=== PATIENT | male | born 1955 | race Caucasian/White ===

== ENCOUNTER 2020-01-08 21:39 | Outpatient (REF) | payer BC, SELFPAY ==
[2020-01-08 22:14] LABS: HCT 44.3 % (40.0-50.0); HGB 14.7 g/dL (13.5-17.5); MCH 29.3 pg (27.0-33.0); MCHC 33.2 % (32.0-36.0); MCV 88.2 fL (80-95); MPV 12.4 fL (8.0-11.0); Platelet Count 195 10^3/uL (130-400); RBC 5.02 10^6/uL (4.36-5.78); RDW 13.6 % (11.8-14.1); RDW-SD 43.8 fL
[2020-01-08 22:55] LABS: ALT 67 U/L (16-63); AST 38 U/L (15-37); Albumin 3.8 g/dL (3.4-5.0); Alkaline Phosphatase 77 U/L (46-116); Anion Gap 9.1 mmol/L (3-11); BUN 24 mg/dL (7-18); Bilirubin, Total 0.5 mg/dL (0.2-1.0); CO2 23.9 mmol/L (21.0-32.0); CREATININE 0.94 mg/dL (0.70-1.30); Chloride 107 mmol/L (98-107); Glucose 99 mg/dL (74-106); Potassium 4.2 mmol/L (3.5-5.1); Sodium 140 mmol/L (136-145)
== END 2020-01-08 21:59 ==
LOC: NCHCN 21:39
PROVIDERS: PCP Nurse Practitioner Family; Visit Provider Nurse Practitioner Family
DX: Z00.00 Encounter for general adult medical examination without abnormal findings (principal)
CPT/HCPCS: 80053; 85027; 85025

== ENCOUNTER → 2020-02-12 17:14 | Outpatient (REF) | payer BC, SELFPAY ==
[2020-02-12 21:36] LABS: ALT 52 U/L (16-63); AST 25 U/L (15-37); Albumin 3.6 g/dL (3.4-5.0); Alkaline Phosphatase 75 U/L (46-116); Anion Gap 9.3 mmol/L (3-11); BUN 20 mg/dL (7-18); Bilirubin, Total 0.4 mg/dL (0.2-1.0); CO2 24.7 mmol/L (21.0-32.0); CREATININE 0.86 mg/dL (0.70-1.30); Calcium 8.8 mg/dL (8.5-10.1); Calculated LDL 95 mg/dL (<100); Chloride 106 mmol/L (98-107); Cholesterol 167 mg/dL (<200); Glucose 141 mg/dL (74-106); HDL Cholesterol 55 mg/dL (40-60); Potassium 4.1 mmol/L (3.5-5.1); Sodium 140 mmol/L (136-145); Total Protein 6.9 g/dL (6.4-8.2); Triglyceride 87 mg/dL (<150)
[2020-02-13 17:18] LABS: PSA, Screening 0.3 ng/mL (0.0-4.5)
== END ==
LOC: NCHCN 17:14
PROVIDERS: PCP Nurse Practitioner Family; Visit Provider Nurse Practitioner Family
DX: R39.15 Urgency of urination (principal); N40.0 Benign prostatic hyperplasia without lower urinary tract symptoms; Z00.00 Encounter for general adult medical examination without abnormal findings
CPT/HCPCS: 80053; 80061; 84153

== ENCOUNTER 2022-08-30 02:46 | Outpatient (CLI) | payer BC, SELFPAY ==
--- NOTE | 2022-08-30 14:01 | DI.RAD_ITS ---
Exam(s) XR FOOT LT COMPLETE EXAM: XR FOOT LT COMPLETE CLINICAL HISTORY: ? ostemyelitis to 2nd digit,TOE PAIN, DIABETES,M79.676,E11.621,l97.509. TECHNIQUE: 2D digital imaging was performed of the left foot. Three images were obtained. AP, obli que and lateral views were obtained. COMPARISON: No exams were available for comparison FINDINGS: BONES: No acute fracture is present. No bony destructive lesion is seen. Degenerative changes of the 1st MTP joint. JOINTS: No dislocation present. SOFT TISSUE: Soft tissue swelling of the foot. IMPRESSION: No radiographic evidence to suggest acute osteomyelitis. DATA REPOSITORY: RADIATION DOSE DELIVERED:
--- NOTE | 2022-08-30 14:01 | DI.RAD_ITS ---
Exam(s) XR FOOT RT COMPLETE EXAM: XR FOOT RT COMPLETE CLINICAL HISTORY: ? ostemyelitis to 2nd digit. TECHNIQUE: 2D digital imaging was performed of the right foot. Three images were obtained. AP, obl ique and lateral views were obtained. COMPARISON: No exams were available for comparison FINDINGS: BONES: No acute fracture is present. No bony destructive lesion is seen. Postsurgical changes are see n at the great toe. There is a small plantar calcaneal spur. JOINTS: No dislocation present. There are degenerative changes present. SOFT TISSUE: Soft tissue swelling of the foot. IMPRESSION: No radiographic evidence to suggest osteomyelitis. DATA REPOSITORY: RADIATION DOSE DELIVERED:
== END 2022-08-30 03:06 ==
LOC: DI 02:47
PROVIDERS: Visit Provider Podiatrist
DX: E11.621 Type 2 diabetes mellitus with foot ulcer (principal); M19.072 Primary osteoarthritis, left ankle and foot; M86.171 Other acute osteomyelitis, right ankle and foot
CPT/HCPCS: 73630

== ENCOUNTER 2022-09-23 13:56 | Outpatient (REF) | payer MEDICARE, BC, SELFPAY | END 2022-09-23 13:57 | disposition home or self-care (01) | LOC: LBN 13:56 | PROVIDERS: Visit Provider Podiatrist | DX: L97.521 Non-pressure chronic ulcer of other part of left foot limited to breakdown of skin (principal); L97.511 Non-pressure chronic ulcer of other part of right foot limited to breakdown of skin | CPT/HCPCS: 87077; 87070; 87075; 87186; 87205 ==

== ENCOUNTER → 2022-09-23 15:17 | Outpatient (CLI) | payer MEDICARE, BC, SELFPAY ==
--- NOTE | 2022-09-23 14:15 | DI.RAD_ITS ---
Exam(s) XR FOOT RT COMPLETE EXAM: XR FOOT RT COMPLETE CLINICAL HISTORY: r/o osteomyelitis, toe ulcer, L97.509. TECHNIQUE: 2D digital imaging was performed. Three views. COMPARISON: CR XR FOOT RT COMPLETE from 08/30/2022 FINDINGS: BONES: No acute fracture is present. No bony destructive lesion is seen. Stable appearance of bunion ectomy defect at the medial 1st metatarsal head. Stable mild hallux valgus. Small heel spur. JOINTS: No dislocation present. Hammertoe deformity 2nd toe. SOFT TISSUE: A BB marker was placed over the air ulcer on the dorsal aspect of the 2nd toe. There is soft tissue swelling of the 2nd toe. No foreign body or gas collection is seen. No bony erosions. IMPRESSION: Soft tissue swelling of the 2nd toe. No bony erosion. DATA REPOSITORY: RADIATION DOSE DELIVERED:
--- NOTE | 2022-09-23 14:15 | DI.RAD_ITS ---
Exam(s) XR FOOT LT COMPLETE EXAM: XR FOOT LT COMPLETE CLINICAL HISTORY: r/o osteomyelitis, toe ulcer, L97.509. TECHNIQUE: 2D digital imaging was performed. Three views. COMPARISON: CR XR FOOT LT COMPLETE from 08/30/2022 FINDINGS: BONES: No acute fracture is present. No bony destructive lesion is seen. Tiny plantar calcaneal spu r. JOINTS: No dislocation present. No significant degenerative changes. SOFT TISSUE: A BB marker was placed at the distal aspect of the 2nd toe to karlene the ulcer. There is soft tissue swelling around this area. No gas collection or foreign body. No bony erosion. IMPRESSION: Soft tissue swelling of the 2nd toe. No evidence of bony erosion DATA REPOSITORY: RADIATION DOSE DELIVERED:
--- OUTSIDE RECORDS SUMMARY | 2022-09-23 15:19 | XMS_ITS | CCD ---
Author Name Unknown Address [address] [place] [address] [id number] Organization Unknown Address [address] [place] [address] [id number] Care Team Providers Care Industrial Cafeteria Manager Name Role Phone MARIA OLIVO Attending Physician [phone] MARIA OLIVO Rounding (Secondary) Physician [phone] Vital Signs Unknown or Not Available. Allergies Unknown or Not Available. Procedures Unknown or Not Available. History of Immunizations Unknown or Not Available. Problems Unknown or Not Available. Results Unknown or Not Available. Active Medications Unknown or Not Available. Medications Administered During Visit Unknown or Not Available. Encounters Encounter Diagnosis Diagnosis Code Start Date Impingement syndrome of right shoulder [id number] 12/17/2020 Social History Smoking Status Code Start Date End Date Never smoker [id number] Patient Decision Aids Unknown or Not Available. Discharge Instructions You were admitted to [facility] on 12/17/2020 11:24 with a principal diagnosis of Impingement syndrome of right shoulder You were discharged from [facility] on 12/17/2020 00:00 Should you have any questions prior to discharge, please contact a member of your healthcare team. If you have left the hospital and have any questions, please contact your primary care physician. Chief Complaint and Reason For Visit Unknown or Not Available. Function Status Unknown or Not Available. Plan of Care Unknown or Not Available. Referral/Transition of Care Unknown or Not Available.
--- OUTSIDE RECORDS SUMMARY | 2022-09-23 15:19 | XMS_ITS | Continuity of Care Document ---
Author Name Unknown Organization [facility] Ambulatory Clinics Address [address] [place] [address] Care Team Providers Care Size Marker Name Role Phone FÁTIMA CUEVA Primary Care Physician Encounter [facility] NBR [id number] Date(s): 02/17/22 - 02/17/22 [facility] Ambulatory Clinics [address], [place] [address] Encounter Diagnosis Obstructive sleep apnea syndrome(Discharge Diagnosis) - 02/17/22 REM sleep behavior disorder(Discharge Diagnosis) - 02/17/22 Discharge Disposition: Home or Self Care Attending Physician: Radhames Mena DO Allergies, Adverse Reactions, Alerts Substance Reaction Severity Status metoprolol Unknown Active Latex Unknown Active Assessment and Plan Future Appointments Functional Status 02/17/22 Living Environment Home Environment No qualifying data available Other exposure to Infectious Disease Non e Medications azelastine 137 mcg/inh (0.1%) nasal spray 30 mL, 0 Refill(s) Start Date: 02/16/22 Status: Ordered Blood Glucose Lancets Supply, See instructions, # 1 EA, 0 Refill(s) Start Date: 11/24/21 Status: Ordered celecoxib 100 mg oral capsule 180 cap, 0 Refill(s) Start Date: 02/16/22 Status: Ordered famotidine 20 mg oral tablet 20 mg = 1 tab, Oral, BID, # 60 tab, 0 Refill(s) Start Date: 11/24/21 Status: Ordered finasteride 5 mg oral tablet 5 mg = 1 tab, Oral, Daily, # 30 tab, 0 Refill(s) Start Date: 11/24/21 Status: Ordered fluticasone 50 mcg inhalation powder 1 puffs, Inhale, BID, # 120 EA, 0 Refill(s) Start Date: 11/24/21 Status: Ordered fluticasone 50 mcg/inh nasal spray 50 mcg, Subacromial, Daily, 1 Unknown, 0 Refill(s) Start Date: 02/16/22 Status: Ordered gabapentin 300 mg oral capsule 300 mg = 1 cap, Oral, BID, morning and at dinner time, # 90 cap, 0 Refill(s) Start Date: 01/18/22 Status: Ordered gabapentin 600 mg oral tablet 600 mg = 1 tab, Oral, Daily, at bedtime, # 90 tab, 0 Refill(s) Start Date: 11/24/21 Status: Ordered guaiFENesin 400 mg oral tablet 400 mg = 1 tab, Oral, every 4 hr, PRN as needed for congestion, # 30 tab, 0 Refill(s) Start Date: 11/24/21 Status: Ordered ketoconazole 2% topical cream 1 ted, Topical, BID, # 60 g, 0 Refill(s) Start Date: 11/24/21 Stop Date: 12/22/21 Status: Ordered metFORMIN 500 mg oral tablet 500 mg = 1 tab, Oral, Daily, # 60 tab, 0 Refill(s) Start Date: 11/24/21 Status: Ordered methocarbamol 750 mg oral tablet 750 mg = 1 tab, Oral, Daily, @ night, # 42 tab, 0 Refill(s) Start Date: 11/24/21 Stop Date: 12/01/21 Status: Ordered montelukast 10 mg oral tablet 10 mg = 1 tab, Oral, Daily, 0 Refill(s) Start Date: 11/24/21 Status: Ordered omeprazole 40 mg oral delayed release capsule 40 mg = 1 cap, Oral, Daily, # 30 cap, 0 Refill(s) Start Date: 11/24/21 Status: Ordered pramipexole 1 mg oral tablet 90 tab, 0 Refill(s) Start Date: 02/16/22 Status: Ordered tamsulosin 0.4 mg oral capsule 0.4 mg = 1 cap, Oral, Daily, # 30 cap, 0 Refill(s) Start Date: 11/24/21 Status: Ordered Problem List Condition Confirmation Course Effective Dates Status H ealth Status Informant Allergic rhinitis due to pollen Confirmed Active Carpal tunnel syndrome of right wrist Confirmed Active Diabetes Confirmed Active Entrapment of right ulnar nerve at elbow Confirmed Active Environmental allergy Confirmed Active Gastroesophageal reflux disease without esophagitis Confirmed Active HTN (hypertension) Confirmed Active Birch's neuroma of left foot Confirmed Active Nocturia due to benign prostatic hypertrophy Confirmed Active Obstructive sleep apnea syndrome Confirmed Active Posttraumatic stress disorder Confirmed Active REM sleep behavior disorder Confirmed Active Restless legs Confirmed Active Sensorineural hearing loss, bilateral Confirmed Active Type 2 diabetes mellitus Confirmed Active Procedures Procedure Date Related Diagnosis Body Site Status Surgery 1 Completed 1carpal tunnel release ulna movement Vital Signs Most recent to oldest [Reference Range]: 1 Apical Heart Rate [60-100 bpm] 89 bpm (02/17/22 11:21 AM) Blood Pressure [90-140/60-90 mmHg] 130/8 8mmHg (02/17/22 11:21 AM) Weight 142.88 kg (02/17/22 11:21 AM) Weight Measured (lbs) 314.996 lb (02/17/22 11:21 AM) [place] Body Weight Calculated 82.2 kg (02/17/22 11:21 AM) Height 187.96 cm (02/17/22 11:21 AM) Height/Length Measured (inches) 74 inch (02/17/22 11:21 AM) BSA Measured 2.73 m2 (02/17/22 11:21 AM) Body Mass Index 40.44 kg/m2 (02/17/22 11:21 AM) Social History Social History Type Response Tobacco Never tobacco user T obacco Use:. Sex Hospital Discharge Instructions Follow Up Care 02/11/2022 15:05:59 With:Radhames Mena DO Address: [address] [place] [id number] When:Within 3 Month(s) Polysomnography (sleep) study * Tiffanie Cooper: PERFORM Event Display: Sleep Study Authored Date: [id number] * Tiffanie Cooper: PERFORM Event Display: Sleep Study Authored Date: [id number] Physician Outpatient Note * Radhames Mena DO: PERFORM Event Display: Office Clinic Note Physician Authored Date: [id number] YUE TADEO :1955 Age:66 years Sex:Male Visit Date:02/17/2022 Primary Care Physician: FÁTIMA CUEVA Chief Complaint First follow-up visit for DAYANNA treated with AutoPap 5 to 10 cm H2O. ??Had previous diagnosis of thisdisorder and was on CPAP at higher pressures in the past. ??Lived at higher elevation during those times. EPWORTH: History of Present Illness --??Initial presentation??July 15, 2021??for nurse practitioner Fátima Nicolas??for known DAYANNA and possible RBD.?? He had not seen a sleep physician in over 10 years??and his machine was over 7 years old.?? He was first tested in 2005??and then again in 2011. --??Patient is a distinguished and??served in the [employer]??from 77-. --He said he was seeing me because of apnea, excessive movement, and violent movement.?? He was initially diagnosed in [place]??and he presented to me with his , Mary, and his service dogs.?? They all stayed with him the night of the study. --He had severe DAYANNA early on with an overall 4% AHI of 51.18??and an overall 3% AHI of 61.76.?? O2 sat nick 87%. --Sleep latency 4.9 minutes, overall TST 353 minutes,??TST posttreatment 285 minutes,??sleep efficiency 92%. --REM latency 160 minutes??with 22% of the sleep time in that stage of sleep,??or 77.5 minutes. --WASO 25.7 minutes,??overall arousal index 7.8/h. --Generally well consolidated??sleep??with??a brief period??spent awake??as we transitioned him to therapy. --CPAP taken from 5 cm H2O to an optimal pressure of 6 cm H2O??on which she slept for 256.6 minutes??with a residual AHI of 0.94??and an oxygen saturation nick of 93%. --No REM/supine sleep seen in any pressure. --Interface: Medium F 20??full??face??mask. --??Ashley??reported sleeping better than usual. --Average heart rate 63.8 bpm pretreatment??and 62 bpm posttreatment.?? Heart rate ranged from 54 bpm to 79 bpm??and no arrhythmias were seen. --423 periodic limb movements of sleep??for a PLM index of 71.9.?? Total limb movement index 149.40.?? PLM arousal index 0. --As suspected at his initial visit,??there were??abnormal movements during REM sleep on several occasions, some of them quite vigorous. --Severe DAYANNA successfully treated with a low amount of CPAP pressure, severe periodic limb movements of sleep,??and??possible REM behavior disorder. --Owing to the lack of supine??REM sleep on any pressure,??would start AutoPap 6 to 10 cm H2O??withmask choice as outlined above. --Would recommend that his PCP??check a serum ferritin level for the periodic limb movements of sleep??which may or may not need treatment. --Would??withhold formalizing a diagnosis of RBD??until patient stabilized on DAYANNA.?? He does have PTSD and this needs to be treated successfully. ??If needed, we could use melatonin or clonazepam??following that. ... Data Download:??February 02, 2022??through February 13, 2022 - Settings:??AutoPap 5 to 10 cm H2O - Use:??100% with a??average daily usage??of 9 hours 8 minutes - Av. nightly use:??9 hours 8 minutes - 95% pressure:??7.3 cm H2O - AHI:??0.2 - 95% leak:??3.9 L/min ... David and his return today??for his first visit since being put on??a Rashmi??AutoPap set 5 to 10cm H2O.?? He would like it changed to??6 to 10 cm H2O with no ramp??because he feels like he needs more air.?? He also needs an in person mask fitting??as he is bothered by leak with the??medium F 20fullface mask currently being used. ?? David is sleeping??from midnight until somewhere between 7 AM and 8 AM.?? Wakes up 2-3 times a nightand the awakenings are usually brief??and often just to urinate.?? His Herron sleepiness score today is still little elevated at 13/24. ?? They like their [employer] company??but want to fix the mask issue because it leaks around his eyes.?? As noted, he needs more pressure.?? We reviewed how to clean everything. ?? In medical news,??he does not know who his new nurse practitioner will be??as Fátima Nicolas??is moving on.?? He has a history of nasal congestion and was scoped??by Dr. Sanchez recently. ??He is on 2 medications for nasal congestion??and he is also on Singulair.?? He also undergoes??allergy??treatm ents weekly??with Dr. Sanchez.?? I am suggesting that he give??the NeilMed nasal rinse regimen a try.?? He can do that directly as it is safe??but if he has any questions he can always??go to Dr. Sanchez. ?? Some of his complaints today??include??mouth and nose dryness.?? He says that the reservoir??is filled just to the top??each evening at lights out??and in the morning there is still about 1/8 of an inch left.?? He has his??humidity set??low and even at 3 he got rainout.?? It should be noted that the??unit is??below the level of the bed on the floor, at least 2 feet??and difference between the 2.?? He does use a regular hose.?? He says he never overfill signs??but occasionally gets rainout. ?? I think the best way to handle this is to have an in person mask fitting??as well as a machine check??because this does not add up to me.?? He is happy with that. ... In terms of the possible RBD,??I want to see him get??psychiatric care for PTSD??and then question his ??as to whether or not he continues to thrash.?? Should that be the case,??I will consider treatment with??either melatonin or clonazepam.?? This was explained to them and they are in agreement. Review of Systems Constitutional:?No??fevers,?No??chills,?No??sweats ENT:?No??ear pain,?No??nasal congestion,?No??sore throat Respiratory:?No??shortness of breath,?No??cough Cardiovascular:?No??Chest pain,?No??palpitations,?No??syncope Neurologic: Alert & oriented X 4 Psychiatric:?No??anxiety,?No??depression Physical Exam Vitals & Measurements HR:??89??(Apical)?? BP:??130/88?? SpO2:??97%?? HT:??187.96??cm?? WT:??142.88??kg?? BMI:??40.44?? BSA:??2.73?? General: Alert and oriented,??No??acute distress,??obese, with Mary, using a cane Eye: PERRL, EOMI,?Normal??conjunctiva HENT: Normocephalic, Atraumatic, slight nasal septum deviation,??dentition??some missing teeth??Retrognathia??none??Mallampati class??III-IV,??Tongue size??Normal, Tonsils??1+ enlarged, Uvula??Long and thick Throat:??Normal Neck: Supple, non-tender,?No??carotid bruits,?No??JVD,?No??lymphadenopathy Lungs: Clear to auscultation and percussion,?Non-labored?? respiration,??No wheezes,??No Rales,??No rhonchi Heart:?Normal?? rate,?Regular??rhythm,?No??murmur??_,?No??gallop,?No??edema Neurologic: Awake, alert and oriented, Cognition??Normal, has to use a cane and is somewhat weak and wobbly getting around,??coordination??Impaired??Speech??Normal??TremorNone Psychiatric: Appropriate mood and affect Assessment/Plan 1.??Obstructive sleep apnea syndrome??G47.33 David was commended for getting off to good start.?? We reviewed the fact that??he is generally doing well??and agreed that he will??get an in person mask fitting??and mention the problems of leak around the eyes??when they come out to see him and check his machine. ??The machine check is needed because??I do not know what to make of his reports of rainout.?? The tank is not overfilled, the unit is below the level of the bed,??and humidity is only set on 3.?? Perhaps they can help and if they can he is going to??reach back out to me about that issue or any other problems arise??before being seen next in 3 months.?? He will try the NeilMed regimen for his nasal congestion.?? Pressure change will??occur directly??and will now be 6 to 10 cm H2O??AutoPap with no ramp.?? I think things are onlygoing to look up for him??and I look forward to seeing him??soon. 2.??REM sleep behavior disorder??G47.52 We will go into this more at next visit.?? I want to see??a lengthy block of time, at least 1 month,??of consistent usage for high amount of time each night.?? That, in conjunction with Mary's??observations, will dictate pharmacotherapeutic options??being undertaken.?? This was explained to them and they understand. Follow Up Instructions With When Contact Information Radhames Mena DO In 3 months [address] [place] [address] Additional Instructions: Problem List/Past Medical History Ongoing Allergic rhinitis due to pollen Carpal tunnel syndrome of right wrist Diabetes Entrapment of right ulnar nerve at elbow Environmental allergy Gastroesophageal reflux disease without esophagitis HTN (hypertension) Birch's neuroma of left foot Nocturia due to benign prostatic hypertrophy Obstructive sleep apnea syndrome Posttraumatic stress disorder REM sleep behavior disorder Restless legs Sensorineural hearing loss, bilateral Type 2 diabetes mellitus Historical No qualifying data Procedure/Surgical History ???Surgery Medications azelastine 137 mcg/inh (0.1%) nasal spray Blood Glucose Lancets, See instructions celecoxib 100 mg oral capsule famotidine 20 mg oral tablet, 20 mg= 1 tab, Oral, BID finasteride 5 mg oral tablet, 5 mg= 1 tab, Oral, Daily fluticasone 50 mcg inhalation powder, 1 puffs, Inhale, BID fluticasone 50 mcg/inh nasal spray, 50 mcg, Subacromial, Daily gabapentin 300 mg oral capsule, 300 mg= 1 cap, Oral, BID gabapentin 600 mg oral tablet, 600 mg= 1 tab, Oral, Daily guaiFENesin 400 mg oral tablet, 400 mg= 1 tab, Oral, every 4 hr, PRN ketoconazole 2% topical cream, 1 ted, Topical, BID metFORMIN 500 mg oral tablet, 500 mg= 1 tab, Oral, Daily methocarbamol 750 mg oral tablet, 750 mg= 1 tab, Oral, Daily montelukast 10 mg oral tablet, 10 mg= 1 tab, Oral, Daily omeprazole 40 mg oral delayed release capsule, 40 mg= 1 cap, Oral, Daily pramipexole 1 mg oral tablet tamsulosin 0.4 mg oral capsule, 0.4 mg= 1 cap, Oral, Daily Allergies Latex metoprolol Social History Alcohol Never Electronic Cigarette/Vaping Electronic Cigarette Use: Never. Tobacco Never tobacco user Tobacco Use:. Electronically Signed on 02/17/22 03:23 PM Radhames Mena DO Patient Care team information Personnel Name: FÁTIMA CUEVA Address: Address: [address] [place] [address]
--- OUTSIDE RECORDS SUMMARY | 2022-09-23 15:19 | XMS_ITS | Continuity of Care Document ---
Author Name Unknown Organization [facility] Ambulatory Clinics Address [address] [place] [address] Care Team Providers Care Chain Carrier Name Role Phone LION COTTO Primary Care Physician Encounter [facility] NBR [id number] Date(s): 11/25/21 - 11/25/21 [facility] Ambulatory Clinics [address] [place], [place] [address] Encounter Diagnosis Carpal tunnel syndrome(Discharge Diagnosis) - 11/25/21 Shoulder pain(Discharge Diagnosis) - 11/25/21 Discharge Disposition: Home or Self Care Attending Physician: Kirby Alcantar MD Allergies, Adverse Reactions, Alerts Substance Reaction Severity Status metoprolol Unknown Active Latex Unknown Active Assessment and Plan Future Appointments Functional Status 11/25/21 Other exposure to Infectious Disease Non e Medications Blood Glucose Lancets Supply, See instructions, # 1 EA, 0 Refill(s) Start Date: 11/24/21 Status: Ordered CeleBREX 100 mg oral capsule 100 mg = 1 cap, Oral, BID, # 60 cap, 0 Refill(s) Start Date: 11/24/21 Status: Ordered famotidine 20 mg oral tablet [...] 0 Refill(s) Start Date: 11/24/21 Status: Ordered gabapentin 600 mg oral tablet 600 mg = 1 tab, Oral, TID, # 90 tab, 0 Refill(s) Start Date: 11/24/21 Status: Ordered Gemtesa 75 mg oral tablet 75 mg = 1 tab, Oral, Daily, # [...] tablet 500 mg = 1 tab, Oral, BID, # 60 tab, 0 Refill(s) Start Date: 11/24/21 Status: Ordered methocarbamol 750 mg oral tablet 1,500 mg = 2 tab, Oral, TID, # 42 tab, 0 Refill(s) Start Date: 11/24/21 Stop Date: 12/01/21 Status: Ordered mirabegron 50 mg oral tablet, extended release 50 mg = 1 tab, Oral, Daily, do not crush or chew, # 30 tab, 0 Refill(s) Start Date: 11/24/21 Status: Ordered montelukast 10 mg oral tablet 10 mg = 1 tab, Oral, Daily, 0 Refill(s) Start Date: 11/24/21 Status: Ordered omeprazole 40 mg oral delayed release capsule 40 mg = 1 cap, Oral, Daily, # 30 cap, 0 Refill(s) Start Date: 11/24/21 Status: Ordered tamsulosin 0.4 mg oral capsule 0.4 mg = 1 cap, Oral, Daily, # 30 cap, 0 Refill(s) Start Date: 11/24/21 Status: Ordered Problem List Condition Confirmation Course Effective Dates Status Health St atus Informant Diabetes Confirmed Active HTN (hypertension) Confirmed Active Vital Signs Most recent to oldest [Reference Range]: 1 Peripheral Pulse Rate [60-100 bpm] 86 bp m (11/25/21 1:20 PM) Blood Pressure [90-140/60-90 mmHg] 122/8 4mmHg (11/25/21 1:20 PM) Weight 145.15 kg (11/25/21 1:20 PM) Weight Measured (lbs) 320.001 lb (11/25/21 1:20 PM) Height 187.96 cm (11/25/21 1:20 PM) Height/Length Measured (inches) 74 inch (11/25/21 1:20 PM) BSA Measured 2.75 m2 (11/25/21 1:20 PM) Body Mass Index 41.09 kg/m2 (11/25/21 1:20 PM) Social History Social History Type Response Tobacco Never tobacco user T obacco Use:. Sex Patient Care team information Personnel Name: LION COTTO Address: Address: [address] [place] [address]
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
--- OUTSIDE RECORDS SUMMARY | 2022-09-23 15:20 | XMS_ITS | CCD ---
Author Name Unknown Address [address] [place] [phone] Organization Unknown Address [address] [place] [address] [phone] Care Team Providers Care Tubing Mill Setter Name Role Phone MARIA OLIVO Attending Physician [phone] MARIA OLIVO Rounding (Secondary) Physician [phone] Vital Signs Unknown or Not Available. Allergies Unknown or Not Available. Procedures Unknown or Not Available. History of Immunizations Unknown or Not Available. Problems Unknown or Not Available. Results Unknown or Not Available. Active Medications Unknown or Not Available. Medications Administered During Visit Unknown or Not Available. Encounters Encounter Diagnosis Diagnosis Code Start Date Refusal of treatment by patient [id number] 01/28/2021 Social History Smoking Status Code Start Date End Date Never smoker [id number] Patient Decision Aids Unknown or Not Available. Discharge Instructions You were admitted to [facility] on 01/28/2021 12:18 with a principal diagnosis of Procedure and treatment not carried out because of patient's decision for unspecified reasons You were discharged from [facility] on 01/28/2021 00:00 Should you have any questions prior [...]
--- OUTSIDE RECORDS SUMMARY | 2022-09-23 15:20 | XMS_ITS | CCD ---
Author Name Unknown Address [address] [place] [phone] Organization Unknown Address [address], [place] [id number] Care Team Providers Care Butcher Assistant Name Role Phone MARIA OLIVO Attending Physician [phone] MARIA OLIVO Rounding (Secondary) Physician [phone] Vital Signs Unknown or Not Available. Allergies Unknown or Not Available. Procedures Unknown or Not Available. History of Immunizations Unknown or Not Available. Problems Unknown or Not Available. Results Unknown or Not Available. Active Medications Unknown or Not Available. Medications Administered During Visit Unknown or Not Available. Encounters Encounter Diagnosis Diagnosis Code Start Date Pain in right shoulder [id number] Social History Smoking Status Code Start Date End Date Never smoker [id number] Patient Decision Aids Unknown or Not Available. Discharge Instructions You were admitted to [facility] on 07/14/2021 12:20 with a principal diagnosis of Pain in right shoulder You were discharged from [facility] on 07/14/2021 00:00 Should you have any questions prior [...]
== END ==
PROVIDERS: Visit Provider Podiatrist
DX: L97.512 Non-pressure chronic ulcer of other part of right foot with fat layer exposed; L97.522 Non-pressure chronic ulcer of other part of left foot with fat layer exposed; M86.9 Osteomyelitis, unspecified
CPT/HCPCS: 73630

== ENCOUNTER 2023-06-20 14:49 | Emergency (ER) | payer MEDICARE, BC, SELFPAY ==
[2023-06-20] VITALS (27 sets, daily range): BP systolic 104–134; BP diastolic 47–65; PULSE 76–117; RESP 15–28; TEMP 37.3; O2SAT 93–97
--- NOTE | 2023-06-20 14:30 | RT.EKG_ITS ---
APPROVED REPORT Exam: Resting ECG Reason for Exam: dyspnea Patient Location: E HR:112 bpm ECG Measurements Heart Rate 112 AXIS WY 163 P 48 QRSd 94 QRS -50 QT 343 T 82 QTc 470 Conclusion Sinus tachycardia...rate> 99 Left anterior fascicular block...axis(240,-40), init forces inf
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
[2023-06-20 15:14] LABS: BE (Venous) -1 mmol/L (-2-3); HCO3 (Venous) 24 mmol/L (23-28); O2 Sat (Venous) 80 %; TCO2 (Venous) 21 mmol/L (24-29); pCO2 (Venous) 38 mmHg (41-51); pH (Venous) 7.41 (7.31-7.41); pO2 (Venous) 43 mmHg
[2023-06-20 15:15] LABS: Abs Immature Grans 0.12 10^3/uL (0.0-0.06); Absolute Basophil Count 0.05 10^3/uL (0.0-0.2); Absolute Lymphocyte Count 0.52 10^3/uL (1.2-3.4); Absolute Neutrophil Count 15.33 10^3/uL (1.2-6.7); Basophils % 0.3 %; Eosinophils % 0.1 %; HCT 42.8 % (40.0-50.0); HGB 14.3 g/dL (13.5-17.5); Immature Grans % 0.7 %; Lymphocytes % 3.1 %; MCH 29.5 pg (27.0-33.0); MCHC 33.4 % (32.0-36.0); MCV 88 fL (80-95); MPV 11.6 fL (8.0-11.0); Monocytes % 3.7 %; Neutrophils % 92.1 %; Platelet Count 159 10^3/uL (130-400); RBC 4.85 10^6/uL (4.36-5.78); RDW 13.2 % (11.8-14.1); RDW-SD 42.9 fL; WBC 16.64 10^3/uL (4.4-10.8)
[2023-06-20] MEDS: Ketorolac 15 MG/ML VIAL IVP (15:15)
[2023-06-20] MEDS: Normal Saline 1,000 ML 1000 ML IV (15:15)
[2023-06-20 15:22] LABS: ESR 17 mm/hr (0-20)
[2023-06-20 15:25] LABS: Absolute Eosinophil Count 0.02 10^3/uL (0.0-0.7); Absolute Monocyte Count 0.62 10^3/uL (0.1-0.8)
[2023-06-20 15:30] LABS: PTT Activated 26.9 sec (23.6-32.8); Prothrombin Time 10.5 sec (9.1-11.1)
[2023-06-20 15:36] LABS: C-Reactive Protein 2.89 mg/dL (<or=0.5)
[2023-06-20 15:43] LABS: ALT 46 U/L (16-63); AST 17 U/L (15-37); Albumin 3.4 g/dL (3.4-5.0); Alkaline Phosphatase 52 U/L (46-116); Anion Gap 11.5 mmol/L (3-11); BUN 25 mg/dL (7-18); Bilirubin, Total 0.9 mg/dL (0.2-1.0); CO2 24.5 mmol/L (21.0-32.0); Calcium 8.6 mg/dL (8.5-10.1); Chloride 104 mmol/L (98-107); Estimated GFR 83.52 (mL/min/1.73m2); Glucose 141 mg/dL (74-106); Magnesium 1.9 mg/dL (1.8-2.4); NT-proBNP 289 pg/mL (<300); Potassium 3.8 mmol/L (3.5-5.1); Sodium 140 mmol/L (136-145); Troponin I < 50 ng/L (< or =60)
[2023-06-20 16:05] LABS: COVID-19 PCR Negative (Negative); Influenza A PCR Negative (Negative); Influenza B PCR Negative (Negative); RSV PCR Negative (Negative)
[2023-06-20 16:07] LABS: Source Nasopharynx
[2023-06-20 16:16] LABS: Procalcitonin 0.4 ng/mL
[2023-06-20 16:46] LABS: Bilirubin Small (Negative); Blood Negative (Negative); Clarity Clear (Clear); Glucose Negative (Negative); Ketones Negative (Negative); Leukocyte Esterase Negative (Negative); Nitrite Negative (Negative); Specific Gravity >= 1.030 (1.005-1.025)
--- NOTE | 2023-06-20 17:03 | DI.CT_ITS ---
Exam(s) CT HEAD WO EXAM: CT HEAD WO CLINICAL HISTORY: right sided headache. TECHNIQUE: Imaging Protocol: Axial computed tomography images with coronal and sagittal reformatted images were created and reviewed COMPARISON: No exams were available for comparison FINDINGS: There are no skull fractures. There is no fluid in the visualized paranasal sinuses. There is no evidence of intracranial hemorrhage, mass effect, or shift of midline structures. There are no extra-axial fluid collections. The ventricles are not enlarged or shifted and there is no blo od within the ventricular system nor within the basal cisterns. IMPRESSION: No acute intracranial findings on this noninfused CT scan of the brain. RADIATION DOSE DELIVERED: 788.06mGy.cm Total DLP DATA REPOSITORY: All CT scans at this facility are submitted to the National Radiology Data Registry (NRDR) Dose Index Registry (DIR) with the [employer] (A[employer]). RADIATION OPTIMIZATION: All CT scans at this facility use at least one of these dose optimization te chniques: automated exposure control; mA and/or kV adjustment per patient size (includes targeted exa ms where dose is matched to clinical indication); or iterative reconstruction.
--- NOTE | 2023-06-20 17:03 | DI.CT_ITS ---
Exam(s) CT CHEST PE CTA EXAM: CT CHEST PE CTA CLINICAL HISTORY: tachycardia, chest pain,dyspnea. TECHNIQUE: Imaging Protocol: CT angiography of the chest was performed using pulmonary embolus francis col. Multi planar reconstructions were performed. CONTRAST MATERIAL: Intravenous: Omnipaque 350 Contrast volume: 100 cc COMPARISON: No exams were available for comparison FINDINGS: CHEST: PULMONARY ARTERIES: Less than optimal opacification of the entire pulmonary arterial tree. However, there are no obvious intraluminal filling defects to suggest the presence of acute pulmonary emboli o ut to the segmental level. LUNGS: There are no infiltrates nor evidence of pulmonary infarction.. There are no pleural effusions . No focal findings in trachea and mainstem bronchi. MEDIASTINUM: There is no hilar nor mediastinal adenopathy. Visualized thyroid unremarkable. CARDIAC: Heart size is upper normal. There is no pericardial effusion.Caliber of the thoracic aorta is within normal limits. No evidence of aortic dissection. There is no significant shift of the inte rventricular septum. PARTIALLY VISUALIZED UPPERMOST ABDOMEN: Gallbladder surgically absent. OSSEOUS: No significant osseous lesions.No fractures.. IMPRESSION: 1. Less than optimal opacification of distal pulmonary arteries. No obvious acute pulmonary emboli o ut to the segmental level..No confluent infiltrates. No pleural effusions 2. No evidence of aortic dissection. No pericardial effusion. Called to ER. RADIATION DOSE DELIVERED: 842.73mGy.cm Total DLP DATA REPOSITORY: All CT scans at this facility are submitted to the National Radiology Data Registry (NRDR) Dose Index Registry (DIR) with the [employer] (ACR). RADIATION OPTIMIZATION: All CT scans at this facility use at least one of these dose optimization te chniques: automated exposure control; mA and/or kV adjustment per patient size (includes targeted exa ms where dose is matched to clinical indication); or iterative reconstruction.
--- NOTE | 2023-06-20 17:11 | DI.RAD_ITS ---
Exam(s) XR FOOT LT COMPLETE EXAM: XR FOOT LT COMPLETE h CLINICAL HISTORY: great toe wound, ?osteo. TECHNIQUE: 2D digital imaging was performed. COMPARISON: CR XR FOOT RT COMPLETE from 09/23/2022 FINDINGS: 3 views There has been amputation of the middle and distal phalanges of the 2nd toe. There is a wound in the distal aspect of the great toe. No fracture at this level. No obvious evide nce of osteomyelitis. No radiopaque foreign body. Remainder of the bones of the foot appear unremar kable. IMPRESSION: No obvious evidence of osteomyelitis. If clinically indicated dedicated views of the great toe can b e performed for added sensitivity/specificity. DATA REPOSITORY: RADIATION DOSE DELIVERED:
[2023-06-20] MEDS: Normal Saline - Diluent 50 ML VIAL IJ (17:15)
[2023-06-20] MEDS: Omnipaque 350 MG/ML 100 ML BTL IJ (17:16)
[2023-06-20 18:00] LABS: Troponin I < 50 ng/L (< or =60)
[2023-06-20] MEDS: levoFLOXacin 500 MG, levoFLOXacin 250 MG 750 MG PO (18:16)
== END 2023-06-20 18:34 | disposition home or self-care (01) ==
PROVIDERS: Emergency Provider Emergency Medicine
DX: R06.02 Shortness of breath (principal); R51.9 Headache, unspecified; R05.1 Acute cough; L97.521 Non-pressure chronic ulcer of other part of left foot limited to breakdown of skin; E11.621 Type 2 diabetes mellitus with foot ulcer
CPT/HCPCS: 36415; 36416; 71275; 80053; 82805; 82962; 84145; 85652; 87040; 87637; 93005; 96361; 96374; 99285; 70450; 73630; 81003; 83735; 83880; 84484; 85025; 85610; 85730; 86140; 93010; 99283; J1885; J3490

== ENCOUNTER → 2023-08-16 10:08 | Outpatient (CLI) | payer MEDICARE, BC, SELFPAY ==
--- NOTE | 2023-08-16 | DI.RAD_ITS ---
Exam(s) XR FOOT LT COMPLETE EXAM: XR FOOT LT COMPLETE CLINICAL HISTORY: non pressure chronic ulcer, type 2 diabetes L97.522, E11.621, L97.529. TECHNIQUE: 2D digital imaging was performed. Three views. COMPARISON: CR XR FOOT LT COMPLETE from 06/20/2023 FINDINGS: BONES: No acute fracture is present. No bony destructive lesion is seen. Prior amputation of the [place] and distal phalanges of the 2nd toe. Partial section of the head of the proximal phalanx of the 2 nd toe. Small heel spur. JOINTS: No dislocation present. Mild degenerative changes 1st MTP joint and interphalangeal joint. SOFT TISSUE: Marked swelling great toe. Skin ulcer visible. No foreign body. IMPRESSION: marked soft tissue swelling of the great toe. No bony erosions. DATA REPOSITORY: RADIATION DOSE DELIVERED:
== END ==
PROVIDERS: Visit Provider Dermatology
DX: L97.522 Non-pressure chronic ulcer of other part of left foot with fat layer exposed (principal); E11.621 Type 2 diabetes mellitus with foot ulcer
CPT/HCPCS: 73630

== ENCOUNTER 2024-06-23 14:13 | Outpatient (CLI) | payer MEDICARE, BC, SELFPAY ==
--- NOTE | 2024-06-23 14:30 | DI.RAD_ITS ---
Exam(s) XR HIP LT COMPLETE AP PELVIS EXAM: XR HIP LT COMPLETE AP PELVIS CLINICAL HISTORY: fall, hip pain, left. TECHNIQUE: 2D digital imaging was performed of the left hip. Two views were obtained. AP pelvis an d lateral left hip views were obtained. COMPARISON: No exams were available for comparison FINDINGS: BONES: No acute fracture is present. No bony destructive lesion is seen. JOINTS: No dislocation present. The inferior aspect of posterior spinal surgery is seen in the lumbar spine. SOFT TISSUE: Normal. IMPRESSION: No acute fracture or dislocation. DATA REPOSITORY: RADIATION DOSE DELIVERED:
--- NOTE | 2024-06-23 14:30 | DI.RAD_ITS ---
Exam(s) XR SHOULDER RT COMPLETE 2+V XR CLAVICLE RT EXAM: XR CLAVICLE RT and XR shoulder RT complete CLINICAL HISTORY: fall, injury TECHNIQUE: 2D digital imaging was performed of the right shoulder and clavicle. Six images were obt ained. COMPARISON: CT CT CHEST PE CTA from 06/20/2023 FINDINGS: BONES: No acute fracture is present. No bony destructive lesion is seen. JOINTS: No dislocation present. There are degenerative changes seen at the acromioclavicular joint. The glenohumeral joint is well maintained. SOFT TISSUE: Normal IMPRESSION: There is no acute fracture or dislocation in the right clavicle or right shoulder. DATA REPOSITORY: RADIATION DOSE DELIVERED:
--- NOTE | 2024-06-23 15:29 | DI.RAD_ITS ---
Exam(s) XR CERVICAL SPINE COMP 4-5V EXAM: XR CERVICAL SPINE COMP 4-5V CLINICAL HISTORY: fall, injury. TECHNIQUE: 2D digital imaging was performed. Five images were obtained. AP, odontoid, lateral and bi lateral oblique images were obtained. COMPARISON: No exams were available for comparison FINDINGS: The odontoid is intact. The lateral masses are well aligned. There is normal alignment of the cervi maximiliano spine. Age-appropriate degenerative changes are seen in the cervical spine, particularly at C6-C7 . No acute fracture or subluxation is present. No significant neural foraminal stenosis is present. The cervical thoracic junction is well maintained. The prevertebral soft tissues are unremarkable. L jovanni apices are clear. IMPRESSION: No acute fractures or subluxations are present. DATA REPOSITORY: RADIATION DOSE DELIVERED:
--- NOTE | 2024-06-23 15:58 | DI.VRAD_ITS ---
PROCEDURE INFORMATION: Exam: XR Left Hip Exam date and time: 06/23/2024 3:12 PM Age: 68 years old Clinical indication: Other: Fall, hip pain, left TECHNIQUE: Imaging protocol: Radiologic exam of the left hip. Views: 2 or 3 views hip with pelvis when performed. COMPARISON: No relevant prior studies available. FINDINGS: Bones/joints: Postsurgical changes of the lower lumbar spine. No fracture or dislocation. Normal bone mineralization. Soft tissues: Unremarkable. IMPRESSION: No acute findings. If clinical symptoms persist recommend followup film in 7-10 days. Dictated and Authenticated by: Ericka Waller MD. Orderin Tammy Knutson MD
--- NOTE | 2024-06-23 15:59 | DI.VRAD_ITS ---
PROCEDURE INFORMATION: Exam: XR Right Shoulder Exam date and time: 06/23/2024 3:22 PM Age: 68 years old Clinical indication: Other: Fall, shoulder pain TECHNIQUE: Imaging protocol: Radiologic exam of the right shoulder. Views: 2 or more views. COMPARISON: CR XR CLAVICLE RT 23/06/2024 15:01 FINDINGS: Bones/joints: Mild degenerative changes of acromioclavicular joint. No fracture or dislocation. Soft tissues: Unremarkable. IMPRESSION: No acute bony findings. If clinical symptoms persist recommend followup film in 7-10 days. Dictated and Authenticated by: Ericka Waller MD. Orderin Tammy Knutson MD
--- NOTE | 2024-06-23 16:02 | DI.VRAD_ITS ---
PROCEDURE INFORMATION: Exam: XR Spine; Cervical Exam date and time: 06/23/2024 2:51 PM Age: 68 years old Clinical indication: Symptoms: Fall, injury TECHNIQUE: Imaging protocol: XR of the spine. Exam focused on the cervical spine. Views: 1 view. COMPARISON: CT CHEST PE CTA 20/06/2023 16:46 FINDINGS: Bones/joints: Unremarkable. No acute fracture. Normal alignment. Mild degenerative changes at C6-C7. Limited lateral view C7 and and nonvisualization T1 on the lateral view. Soft tissues: Unremarkable. IMPRESSION: No acute findings. Limitations as discussed above. If clinical concern recommend cervical spine CT for further evaluation. Dictated and Authenticated by: Ericka Waller MD. Orderin Tammy Knutson MD
--- NOTE | 2024-06-23 16:04 | DI.VRAD_ITS ---
PROCEDURE INFORMATION: Exam: XR Right Clavicle, Complete Exam date and time: 06/23/2024 3:01 PM Age: 68 years old Clinical indication: Other: Fall, injury TECHNIQUE: Imaging protocol: Radiologic exam of the right clavicle. Complete exam. Views: Any number of views. COMPARISON: No relevant comparison study. FINDINGS: Bones/joints: Degenerative changes of the acromioclavicular joint. No fracture or dislocation. Soft tissues: Unremarkable. IMPRESSION: No acute bony findings. If clinical symptoms persist recommend followup film in 7-10 days. Dictated and Authenticated by: Ericka Waller MD. Orderin Tammy Knutson MD
== END 2024-06-23 14:33 ==
PROVIDERS: PCP Physician Assistant; Visit Provider Physician Assistant
DX: W19.XXXA Unspecified fall, initial encounter (principal); M25.511 Pain in right shoulder; M25.552 Pain in left hip; M54.50 Low back pain, unspecified
CPT/HCPCS: 72050; 73000; 73030; 73502

== ENCOUNTER → 2024-10-15 13:46 | Outpatient (BNVA) | payer MEDICARE, BC, SELFPAY | PROVIDERS: PCP Internal Medicine; Referring Provider Internal Medicine; Visit Provider Student in an Organized Health Care Education/Training Program | DX: M16.0 Bilateral primary osteoarthritis of hip (principal); M70.61 Trochanteric bursitis, right hip; M70.62 Trochanteric bursitis, left hip; M17.0 Bilateral primary osteoarthritis of knee | CPT/HCPCS: 99215 ==